=== PATIENT | male | born 1985 | race Caucasian/White ===

== ENCOUNTER 2023-09-01 13:43 | Emergency (ER) | payer OTHER ==
[~2023-09-01] VITALS: Ht 177.8 cm; Wt 67.1 kg
[2023-09-01 14:42] LABS: BASOPHILS % (AUTO) 0.2 % (0.0-2.0); HEMATOCRIT 47.1 % (36.7-47.1); HEMOGLOBIN 15.6 g/dL (12.5-16.3); LYMPHOCYTES # (AUTO) 0.9 K/uL (0.8-4.8); LYMPHOCYTES % (AUTO) 8.1 % (20.5-51.5); MEAN CORPUSCULAR HEMOGLOBIN 28.8 uug (23.8-33.4); MEAN CORPUSCULAR HGB CONC 33 g/dL (32.5-36.3); MEAN CORPUSCULAR VOLUME 86.9 fL (73.0-96.2); MONOCYTES # (AUTO) 0.9 K/uL (0.1-1.30); MONOCYTES % (AUTO) 7.8 % (0.0-11.0); NEUTROPHILS # (AUTO) 9.2 K/uL (1.8-8.9); NEUTROPHILS % (AUTO) 83.9 % (38.5-71.5); PLATELET COUNT (AUTO) 282 K/uL (152-348); RED BLOOD CELL COUNT(AUTO) 5.42 MIL/uL (4.06-5.63); RED CELL DISTRIBUTION WIDTH 13.2 % (12.1-16.2)
[2023-09-01 14:44] LABS: CALCIUM 9.7 mg/dL (8.5-10.1); CARBON DIOXIDE 27 mmol/L (21-32); CHLORIDE 106 mmol/L (98-107); CREATININE 1.1 mg/dL (0.6-1.3); GLUCOSE 114 mg/dL (74-106); POTASSIUM 4.1 mmol/L (3.5-5.1); SODIUM SERUM 146 mmol/L (136-145); UREA NITROGEN, BLOOD 29 mg/dL (7-18)
[2023-09-01 14:50] LABS: ALANINE AMINOTRANSFERASE 34 U/L (16-63); ALBUMIN 4.8 g/dL (3.4-5.0); ALKALINE PHOSPHATASE 65 U/L (50-136); ASPARTATE AMINOTRANSFERASE 17 U/L (15-37); BILIRUBIN,DIRECT 0.3 mg/dL (0.0-0.2); TOTAL PROTEIN, SERUM 8.7 g/dL (6.4-8.2)
[2023-09-01 14:55] LABS: ACETAMINOPHEN < 2.0 ug/mL (10-30)
[2023-09-01 15:14] LABS: ETHANOL < 3 MG/DL (0-10)
[2023-09-01] MEDS ORDERED: TRAZ-252 PO (17:48)
[2023-09-01] MEDS ORDERED: QUET25TA36 PO (17:48)
[2023-09-01] MEDS ORDERED: LORAZEPAM 1 MG TABLET ONE (18:08)
[2023-09-01] MEDS ORDERED: HALOPERIDOL LACTATE 5 MG/1 ML VIAL ONE (18:09)
[2023-09-01] MEDS: LORAZEPAM 0.5 MG TABLET PO ONE (18:21)
[2023-09-01] MEDS: HALOPERIDOL LACTATE 5 MG/1 ML VIAL IM ONE (18:21)
[2023-09-01 18:44] VITALS: BP 116/68; TEMP 98; O2SAT 100
== END 2023-09-01 18:30 | disposition home or self-care (01) ==
LOC: ER 13:43
DX: R41.82 Altered mental status, unspecified (principal); Z73.6 Limitation of activities due to disability; Z79.899 Other long term (current) drug therapy; F20.9 Schizophrenia, unspecified; F31.9 Bipolar disorder, unspecified
CPT/HCPCS: 80076; 80048; 85025; 99283; 96372; 80299; 80320; 80307; J1630; 36415; A4606; A4663; G0480